=== PATIENT | male | born 1975 | race Hispanic/Latino ===

== ENCOUNTER 2017-03-21 01:20 | Emergency (ER) | payer BC, OTHER, SELFPAY ==
[2017-03-21] MEDS ORDERED: Ketorolac Tromethamine 30 MG/ML VIAL ONE ×2 (02:09→02:10)
[2017-03-21] MEDS ORDERED: cloNIDine HCl 0.1 MG TAB ONE (02:19)
== END 2017-03-21 03:10 | disposition home or self-care (01) ==
LOC: NAV ERS 01:20
DX: I10 Essential (primary) hypertension (principal); Z79.899 Other long term (current) drug therapy
CPT/HCPCS: 96372; J1885

== ENCOUNTER 2024-04-24 18:32 | Emergency (ER) | payer OTHER, SELFPAY ==
[2024-04-24] MEDS ORDERED: Ibuprofen 200 MG TAB ONE (18:46)
[2024-04-24] MEDS ORDERED: Boostrix 0.5 ML (Tdap) VIAL (>/=7 yrs of age) ONE (18:47)
[2024-04-24] MEDS ORDERED: Bacitracin 1 PK ONE (18:49)
== END 2024-04-24 19:02 | disposition home or self-care (01) ==
LOC: NAV ERS 18:32
DX: S01.01XA Laceration without foreign body of scalp, initial encounter (principal); F17.290 Nicotine dependence, other tobacco product, uncomplicated; I10 Essential (primary) hypertension; Z79.899 Other long term (current) drug therapy; Z23 Encounter for immunization; W22.8XXA Striking against or struck by other objects, initial encounter; Y92.009 Unspecified place in unspecified non-institutional (private) residence as the place of occurrence of the external cause
CPT/HCPCS: 12002; 90471; 90715

== ENCOUNTER 2024-05-04 18:04 | Emergency (ER) | payer SELFPAY | END 2024-05-04 18:31 | disposition home or self-care (01) | LOC: NAV ERS 18:04 | DX: S01.01XD Laceration without foreign body of scalp, subsequent encounter (principal); I10 Essential (primary) hypertension; F17.210 Nicotine dependence, cigarettes, uncomplicated; W19.XXXD Unspecified fall, subsequent encounter; Z79.899 Other long term (current) drug therapy ==